=== PATIENT | female | born 1995 | race Caucasian/White ===

== ENCOUNTER → 2016-05-19 | Outpatient (CLI) | payer BC ==
--- NOTE | 2016-05-19 15:23 | REP ---
Clinical: Anatomical evaluation. Comparison: 04/14/2016 . Findings: Examination demonstrates a single live intrauterine in cephalic presentation. motion is identified by technologist. Placenta is noted anteriorly and grade zero without evidence for placenta previa or abruption. Amniotic fluid volume is normal. Cervix measures 4.7 cm. in length and appears closed. No evidence for nuchal cord. Gestational age by LMP 24 weeks 4 days with KAROL 09/04/2016 . Gestational age by current measurements 24 weeks 0 days with KAROL 09/08/2016 . FHR equals 147 beats per minute. Estimated weight 678 grams ( 34th percentile). Anatomical assessment demonstrates normal structures including cranium, choroid plexus, cavum, cerebellum/posterior fossa, nose/lips, lungs, four-chamber heart/ventricular outflow tracts, diaphragm, stomach, cord insertion/three-vessel cord, kidneys/bladder, spine, and extremities. Impression: Single live intrauterine in cephalic presentation demonstrating appropriate interval growth. With the exception of facial profile, anatomical assessment is complete and normal. Signed by Alen Nance MD 05/19/2016 03:15 P
== END | disposition home or self-care (01) ==
LOC: M SMT 13:46
PROVIDERS: ATTEND Advanced Practice Midwife
DX: Z34.82 Encounter for supervision of other normal pregnancy, second trimester (principal); Z36 Encounter for antenatal screening of mother; Z3A.24 24 weeks gestation of pregnancy

== ENCOUNTER → 2016-06-09 | Outpatient (CLI) | payer BC ==
[2016-06-09 17:59] LABS: BASO # 0.1 K/mm3 (0.0-0.2); BASO % 0.7 % (0.0-1.0); EOS # 0.2 K/mm3 (0.0-0.50); EOS % 1.5 % (0.0-3.0); LARGE UNSTAINED CELL # 0.1 K/mm3 (0.0-0.4); LARGE UNSTAINED CELL % 1.1 % (0.0-4.0); LYMPH # 1.7 K/mm3 (1.5-6.5); LYMPH % 14.9 % (24.0-44.0); MEAN CORPUSCULAR HEMOGLOBIN 30.6 pg (27.0-33.0); MEAN CORPUSCULAR HGB CONC 34.2 g/dl (32.0-36.5); MEAN CORPUSCULAR VOLUME 89.4 fl (80.0-96.0); MONO # 0.5 K/mm3 (0.0-0.8); MONO % 4.4 % (0.0-5.0); NEUTROPHILS # 8.3 K/mm3 (1.8-7.7); NEUTROPHILS % 77.5 % (36.0-66.0); PLATELET COUNT, AUTOMATED 178 k/mm3 (150-450); RED CELL DISTRIBUTION WIDTH 13.8 % (11.5-14.5); WHITE BLOOD COUNT 10.7 K/mm3 (4.0-10.0)
== END | disposition home or self-care (01) ==
LOC: M SMT 10:03
PROVIDERS: ATTEND Advanced Practice Midwife
DX: Z34.83 Encounter for supervision of other normal pregnancy, third trimester (principal); Z36 Encounter for antenatal screening of mother; Z3A.00 Weeks of gestation of pregnancy not specified

== ENCOUNTER → 2016-08-11 | Outpatient (REF) | payer BC | LOC: M LAB REF 17:04 | PROVIDERS: ATTEND Obstetrics & Gynecology | DX: Z34.83 Encounter for supervision of other normal pregnancy, third trimester (principal); Z36 Encounter for antenatal screening of mother; Z3A.00 Weeks of gestation of pregnancy not specified ==

== ENCOUNTER 2016-09-02 08:45 | Inpatient (IN) | payer BC ==
[~2016-09-02] VITALS: Ht 167.6 cm; Wt 90.0 kg
[2016-09-02] VITALS (16 sets, daily range): BP systolic 125–181; BP diastolic 63–102
[2016-09-02] MEDS ORDERED: LACTATED RINGER'S 1000 ML IV STA (09:09)
[2016-09-02] MEDS ORDERED: PRENTAB9 PO (09:19)
[2016-09-02] MEDS ORDERED: BUTORPHANOL 2 MG/ML INJ (J0595) IV ONE (10:00)
[2016-09-02] MEDS ORDERED: PROMETHAZINE INJ 25 MG/ML VIAL (J2550) IV ONE (10:00)
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
[2016-09-02] MEDS: miSOPROStol 50 MCG 1/2 TAB (S0191) PO SCH ×4 (11:04→23:43)
[2016-09-02 11:09] LABS: MEAN CORPUSCULAR HEMOGLOBIN 31.3 pg (27.0-33.0); MEAN CORPUSCULAR HGB CONC 34.8 g/dl (32.0-36.5); RED CELL DISTRIBUTION WIDTH 13.6 % (11.5-14.5); WHITE BLOOD COUNT 10.1 K/mm3 (4.0-10.0)
[2016-09-02 11:18] LABS: ALT/SGPT 15 U/L (12-78); AST/SGOT 19 U/L (15-37); BILIRUBIN,TOTAL 0.4 MG/DL (0.2-1.0); CREATININE FOR GFR 0.47 MG/DL (0.55-1.02); GLOMERULAR FILTRATION RATE > 60.0 (>60); URIC ACID 4.4 MG/DL (2.6-6.0)
[2016-09-02] MEDS ORDERED: hydrOXYzine 50 MG TAB PO SCH (21:00)
[2016-09-03] VITALS (35 sets, daily range): BP systolic 126–173; BP diastolic 60–102
[2016-09-03] MEDS ORDERED: LR 1,000 ML IV SCH (05:37)
[2016-09-03] MEDS ORDERED: OXYTOCIN DRIP 30 UNITS in APPROPRIATE DILUENT 1 EA IV SCH (05:45)
[2016-09-03] MEDS ORDERED: FENTANYL 2MCG/ML ROPIVACAINE 0.2% IN 0.9% NACL 200ML IVBAG As Ordered ONE (08:20)
[2016-09-03 08:43] LABS: MEAN CORPUSCULAR HEMOGLOBIN 30.6 pg (27.0-33.0); RED CELL DISTRIBUTION WIDTH 13.4 % (11.5-14.5); WHITE BLOOD COUNT 10.9 K/mm3 (4.0-10.0)
[2016-09-03] MEDS ORDERED: INFLUENZA QUADRIVALENT PF VACCINE 0.5ML SYRINGE/VIAL (90686) IM ONE (09:00)
[2016-09-03] MEDS ORDERED: REFRIGERATOR IV KEYS XX PRN (10:15)
[2016-09-03] MEDS ORDERED: EPIDURAL COMMENT XX SCH (10:15)
[2016-09-03] MEDS ORDERED: FENTANYL/ROPIVACAINE/NACL BAG 200 ML EPIDURAL SCH (10:15)
[2016-09-03] MEDS ORDERED: NALOXONE INJ 0.4 MG/1 ML VIAL (J2310) IV PRN (10:15)
[2016-09-03] MEDS ORDERED: EPIDURAL/PCA KEYS XX PRN (10:15)
[2016-09-03] MEDS ORDERED: ONDANSETRON 4MG/2ML VIAL (J2405) IV PRN (10:15)
[2016-09-03] MEDS ORDERED: diphenhydrAMINE INJ 50MG/ML VIAL (J1200) IV PRN (10:15)
[2016-09-03] MEDS ORDERED: LACTATED RINGER'S 1000 ML IV PRN (10:15)
[2016-09-03] MEDS ORDERED: ePHEDrine SULFATE 25 MG/5 ML(5MG/ML) SYRINGE IV PRN (10:15)
[2016-09-03] MEDS ORDERED: OXYTOCIN 30 UNITS IN 0.9% NaCl 500ML IV BAG (J2590) As Ordered ONE (17:10)
[2016-09-03] MEDS: OXYTOCIN DRIP 30 UNITS in APPROPRIATE DILUENT 1 EA IV SCH (17:32)
[2016-09-03] MEDS ORDERED: RHOGAM 300 MCG (1500 IU) INJ (J2790) IM SCH (17:45)
[2016-09-03] MEDS ORDERED: miSOPROStol 200 MCG TAB (S0191) PR ONE (17:45)
[2016-09-03] MEDS ORDERED: MEASLES,MUMPS,RUBELLA VACCINE INJ (MMR-II) (90707) SC SCH (17:45)
[2016-09-03] MEDS ORDERED: METHYLERGONOVINE MALEATE 0.2 MG TAB PO PRN (17:45)
[2016-09-03] MEDS ORDERED: MOM 30ML SUSPENSION UDC PO PRN (17:45)
[2016-09-03] MEDS ORDERED: DIBUCAINE 1% OINTMENT 30GM TOP PRN (17:45)
[2016-09-03] MEDS ORDERED: ANUSOL HC CREAM 30GM TOP PRN (17:45)
[2016-09-03] MEDS ORDERED: ACETAMINOPHEN 500 MG TAB PO PRN (17:45)
[2016-09-03] MEDS: IBUPROFEN 800 MG TAB PO PRN (19:18)
[2016-09-03 22:09] LABS: MEAN CORPUSCULAR HEMOGLOBIN 31.7 pg (27.0-33.0); MEAN CORPUSCULAR HGB CONC 35.1 g/dl (32.0-36.5); MEAN CORPUSCULAR VOLUME 90.2 fl (80.0-96.0); RED CELL DISTRIBUTION WIDTH 13.2 % (11.5-14.5); WHITE BLOOD COUNT 18.8 K/mm3 (4.0-10.0)
[2016-09-04 00:11] VITALS: BP 152/94
[2016-09-04 00:14] VITALS: BP 148/85
[2016-09-04 00:40] VITALS: BP 140/94
[2016-09-04 06:26] VITALS: BP 137/77
[2016-09-04] MEDS: OXYTOCIN DRIP 30 UNITS in APPROPRIATE DILUENT 1 EA IV SCH (09:11)
[2016-09-04] MEDS: PRENATAL VITAMIN TAB PO SCH ×2 (09:12→09:19)
[2016-09-04] MEDS ORDERED: INFLUENZA QUADRIVALENT PF VACCINE 0.5ML SYRINGE/VIAL (90686) IM ONE (10:00)
[2016-09-04 18:00] VITALS: BP 139/77
[2016-09-04] MEDS: IBUPROFEN 800 MG TAB PO PRN (18:25)
[2016-09-04] MEDS: DOCUSATE SODIUM 100 MG CAP PO PRN ×2 (19:59→20:00)
[2016-09-04 22:00] VITALS: BP 137/86
[2016-09-05 05:52] VITALS: BP 127/61
[2016-09-05] MEDS: PRENATAL VITAMIN TAB PO SCH (09:11)
[2016-09-05] MEDS: IBUPROFEN 800 MG TAB PO PRN (09:11)
[2016-09-05] MEDS ORDERED: IBUP-1114 PO (10:07)
[2016-09-05] MEDS ORDERED: ACET50TA PO (10:07)
--- NOTE | 2016-09-13 14:53 | DN ---
DATE: 09/03/2016 TIME OF : 1648 hours GENDER: Male. SCORES: 7 and 8. WEIGHT: 9 pounds 0 ounces or 4084 grams. ANESTHESIA: Epidural. LACERATIONS: Second degree midline episiotomy without extension. COUNTS: Five laparotomy sponges accounted for prior to and after delivery, one sharp removed from delivery field. DELIVERY NOTE: On 09/03/2016 at 1648 hours, Mrs. Levy, a 21-year-old, 1, now para 1, had a spontaneous vaginal delivery of a liveborn male , scores 7 and 8, weight 9 pounds or 4084 grams. Head was delivered occiput anterior (OA) over a second degree midline episiotomy, followed by delivery of shoulders and corpus. Infant was then handed to mom with a good cry. Cord was clamped times two, was cut by the father of the baby under my direction. Cord blood was then obtained. Placenta was drained and delivered grossly intact. A premixed bag of 500 mL of normal saline with 30 units of Pitocin was bolused along with uterine massage until the uterus was firm. On inspection, there was a second degree midline episiotomy with no further extension, which was repaired with #3-0 Vicryl Rapide. On reinspection, cervix, vagina and perineum was grossly intact, hemostatic. Mother and baby recovering in stable condition. [facility] SYSTEM[facility]spinoza
== END 2016-09-05 11:25 | disposition home or self-care (01) | DRG 560 ==
LOC: M LDI 08:45 → M OBS 09-04 00:27
PROVIDERS: ADMIT Advanced Practice Midwife; ATTEND Obstetrics & Gynecology
PROC: 3E0P7GC Introduction of Other Therapeutic Substance into Female Reproductive, Via Natural or Artificial Opening (ICD-10-PCS; 2016-09-02)
PROC: 10E0XZZ Delivery of Products of Conception, External Approach (ICD-10-PCS; principal; 2016-09-03)
PROC: 0KQM0ZZ Repair Perineum Muscle, Open Approach (ICD-10-PCS; 2016-09-03)
PROC: 10907ZC Drainage of Amniotic Fluid, Therapeutic from Products of Conception, Via Natural or Artificial Opening (ICD-10-PCS; 2016-09-03)
DX: O14.14 Severe pre-eclampsia complicating childbirth (principal); Z3A.39 39 weeks gestation of pregnancy; Z88.0 Allergy status to penicillin; O70.1 Second degree perineal laceration during delivery; O72.2 Delayed and secondary postpartum hemorrhage; Z37.0 Single live birth

== ENCOUNTER → 2016-10-18 | Outpatient (CLI) | payer BC ==
[~2016-10-18] MED LIST: ACET50TA PO; IBUP-1114 PO; PRENTAB9 PO
[2016-10-18 18:47] LABS: ALBUMIN 3.9 GM/DL (3.2-5.2); ALBUMIN/GLOBULIN RATIO 1.18 (1.00-1.93); ALKALINE PHOSPHATASE 89 U/L (45-117); ALT/SGPT 62 U/L (12-78); ANION GAP 8 MEQ/L (8-16); AST/SGOT 40 U/L (15-37); BILIRUBIN,TOTAL 0.3 MG/DL (0.2-1.0); BLOOD UREA NITROGEN 15 MG/DL (7-18); CALCIUM LEVEL 9.5 MG/DL (8.5-10.1); CARBON DIOXIDE LEVEL 27 MEQ/L (21-32); CHLORIDE LEVEL 107 MEQ/L (98-107); CREATININE FOR GFR 0.63 MG/DL (0.55-1.02); GLOMERULAR FILTRATION RATE > 60.0 (>60); GLUCOSE, FASTING 98 MG/DL (70-105); POTASSIUM SERUM 4.4 MEQ/L (3.5-5.1); SODIUM LEVEL 142 MEQ/L (136-145); TOTAL PROTEIN 7.2 GM/DL (6.4-8.2)
[2016-10-18 19:06] LABS: BASO % 0.6 % (0.0-1.0); EOS # 0.2 K/mm3 (0.0-0.50); EOS % 3.4 % (0.0-3.0); LARGE UNSTAINED CELL # 0.2 K/mm3 (0.0-0.4); LARGE UNSTAINED CELL % 2.8 % (0.0-4.0); LYMPH # 1.8 K/mm3 (1.5-6.5); MEAN CORPUSCULAR HEMOGLOBIN 29.9 pg (27.0-33.0); MEAN CORPUSCULAR HGB CONC 33.3 g/dl (32.0-36.5); MEAN CORPUSCULAR VOLUME 89.7 fl (80.0-96.0); MONO # 0.4 K/mm3 (0.0-0.8); MONO % 5.8 % (0.0-5.0); NEUTROPHILS # 4.6 K/mm3 (1.8-7.7); NEUTROPHILS % 62.4 % (36.0-66.0); PLATELET COUNT, AUTOMATED 248 k/mm3 (150-450); RED CELL DISTRIBUTION WIDTH 12.8 % (11.5-14.5); WHITE BLOOD COUNT 7.3 K/mm3 (4.0-10.0)
== END ==
LOC: M WUC 10:29
PROVIDERS: ATTEND Physician Assistant
DX: R10.811 Right upper quadrant abdominal tenderness (principal)

== ENCOUNTER → 2016-10-21 | Outpatient (CLI) | payer BC ==
--- NOTE | 2016-10-22 01:15 | REP ---
Clinical: Right upper quadrant abdominal pain. Technique: Davila scale ultrasound using curved array transducer. Findings: The liver and pancreas are normal in contour, size, and echogenicity without focal hepatic or pancreatic lesions identified. The gallbladder is normal without gallstones, wall thickening or pericholecystic fluid. No biliary ductal dilatation is appreciated, and the common bile duct measures 4.6 mm diameter. The right kidney is normal in reniform shape without hydronephrosis and measures 9.9 x 5.7 x 4.4 cm. No ascites. Visualized portions of the abdominal aorta normal. Impression: Normal right upper quadrant and gallbladder abdominal ultrasound. Signed by Alen Nance MD 10/22/2016 01:07 A
== END ==
LOC: M RAD 08:12
PROVIDERS: ATTEND Physician Assistant
DX: R10.811 Right upper quadrant abdominal tenderness (principal)

== ENCOUNTER → 2017-01-11 | Outpatient (REF) | payer BC, MEDICAID | LOC: M LAB REF 09:30 | PROVIDERS: ATTEND Physician Assistant | DX: J02.9 Acute pharyngitis, unspecified (principal) ==

== ENCOUNTER → 2017-03-20 | Outpatient (CLI) | payer BC, MEDICAID ==
[2017-03-20 12:48] LABS: PROGESTERONE < 0.2 NG/ML
[2017-03-20 12:54] LABS: FREE T4 0.94 NG/DL (0.76-1.46)
== END ==
LOC: M WUC 09:11
PROVIDERS: ATTEND Advanced Practice Midwife
DX: E28.2 Polycystic ovarian syndrome (principal)

== ENCOUNTER 2017-10-25 20:58 | Emergency (ER) | payer BC, MEDICAID ==
[2017-10-25 21:33] LABS: KETONE, URINE AUTO RFX NEGATIVE (NEGATIVE); MUCUS, URINE RFX SMALL (NEGATIVE); NITRITE, URINE AUTO RFX NEGATIVE (NEGATIVE); RBC, URINE AUTO RFX 2 /HPF (0-3); SPECIFIC GRAVITY UR AUTO RFX 1.021 (1.002-1.035); SQUAM EPITHELIAL CELL UR AURFX 4 /HPF (0-6); WBC, URINE AUTO RFX 5 /HPF (0-3)
[2017-10-25 21:44] LABS: LEUKOCYTE ESTERASE UR AUTO RFX TRACE (NEGATIVE)
[2017-10-25 23:07] LABS: BASO % 0.4 % (0.0-1.0); EOS # 0.2 10^3/uL (0.0-0.50); EOS % 1.9 % (0.0-3.0); HEMATOCRIT 42.8 % (36.0-47.0); HEMOGLOBIN 14.5 g/dl (12.0-15.5); IMMATURE GRANULOCYTE % 0.2 % (0-3.0); LYMPH # 2.6 10^3/uL (1.5-6.5); LYMPH % 26.3 % (24.0-44.0); MEAN CORPUSCULAR HEMOGLOBIN 29.4 pg (27.0-33.0); MEAN CORPUSCULAR HGB CONC 33.9 g/dl (32.0-36.5); MEAN CORPUSCULAR VOLUME 86.8 fl (80.0-96.0); MONO # 0.8 10^3/uL (0.0-0.8); MONO % 8.4 % (0.0-5.0); NEUTROPHILS # 6.3 10^3/uL (1.8-7.7); NEUTROPHILS % 62.8 % (36.0-66.0); PLATELET COUNT, AUTOMATED 207 10^3/uL (150-450); RED BLOOD COUNT 4.93 10^6/uL (4.00-5.40); RED CELL DISTRIBUTION WIDTH 12.2 % (11.5-14.5)
[2017-10-25 23:32] LABS: CONTROL LINE HCG INT CTR LINE PRESENT; HCG, SERUM QUALITATIVE NEGATIVE (NEGATIVE)
[2017-10-25 23:36] LABS: ALBUMIN 3.7 GM/DL (3.2-5.2); ALKALINE PHOSPHATASE 60 U/L (45-117); ALT/SGPT 74 U/L (12-78); ANION GAP 6 MEQ/L (8-16); AST/SGOT 37 U/L (7-37); BILIRUBIN,DIRECT < 0.1 MG/DL (0.0-0.2); BILIRUBIN,TOTAL 0.2 MG/DL (0.2-1.0); BLOOD UREA NITROGEN 15 MG/DL (7-18); CALCIUM LEVEL 8.9 MG/DL (8.5-10.1); CARBON DIOXIDE LEVEL 25 MEQ/L (21-32); CHLORIDE LEVEL 109 MEQ/L (98-107); CREATININE FOR GFR 0.64 MG/DL (0.55-1.30); GLOMERULAR FILTRATION RATE > 60.0 (>60); GLUCOSE, FASTING 99 MG/DL (70-100); LIPASE 187 U/L (73-393); POTASSIUM SERUM 4.2 MEQ/L (3.5-5.1); SODIUM LEVEL 140 MEQ/L (136-145); TOTAL PROTEIN 7.4 GM/DL (6.4-8.2)
[2017-10-25] MEDS ORDERED: ISOVUE-370 76% 100ML VIAL (Q9967) As Ordered (23:43)
[2017-10-26] MEDS: ONDANSETRON 4MG/2ML VIAL (J2405) IV (02:16)
[2017-10-26] MEDS: NS 1,000 ML IV (02:16)
[2017-10-26] MEDS: fentaNYL 100 MCG/2 ML INJECTION (J3010) IV (02:17)
== END 2017-10-26 05:09 | disposition home or self-care (01) ==
LOC: M ED 10-26 05:09
DX: R10.9 Unspecified abdominal pain (principal); I10 Essential (primary) hypertension; J45.909 Unspecified asthma, uncomplicated; Z87.42 Personal history of other diseases of the female genital tract; Z88.0 Allergy status to penicillin; Z79.899 Other long term (current) drug therapy
CPT/HCPCS: J2405

== ENCOUNTER 2018-01-30 18:07 | Emergency (ER) | payer BC ==
[2018-01-30] MEDS: NORCO 5/325MG TABLET (BULK FOR ED) PO (19:29)
== END 2018-01-30 19:52 | disposition home or self-care (01) ==
LOC: M ED 18:07
DX: S93.402A Sprain of unspecified ligament of left ankle, initial encounter (principal); X50.9XXA Other and unspecified overexertion or strenuous movements or postures, initial encounter; Y92.410 Unspecified street and highway as the place of occurrence of the external cause; J45.909 Unspecified asthma, uncomplicated; K58.9 Irritable bowel syndrome, unspecified; Z88.0 Allergy status to penicillin; Z79.3 Long term (current) use of hormonal contraceptives; Z79.899 Other long term (current) drug therapy
CPT/HCPCS: 73610

== ENCOUNTER → 2018-02-19 | Outpatient (CLI) | payer BC | LOC: M WUC 15:22 | DX: J20.9 Acute bronchitis, unspecified (principal) ==

== ENCOUNTER 2018-06-08 11:24 | Emergency (ER) | payer BC, MEDICAID, SELFPAY ==
[~2018-06-08] VITALS: Ht 170.2 cm; Wt 98.3 kg
[~2018-06-08 11:24] MED LIST changes: -ACET50TA PO; +MAPA500T2 PO; +NORCOTAB PO; +OMEP40CA2 PO; +PRED20TA; +TRI-LO-MARZIA
[2018-06-08 12:10] LABS: BASO # 0.1 10^3/uL (0.0-0.2); BASO % 0.4 % (0.0-1.0); EOS # 0.1 10^3/uL (0.0-0.50); EOS % 1.2 % (0.0-3.0); HEMATOCRIT 46.5 % (36.0-47.0); LYMPH # 2.1 10^3/uL (1.5-6.5); LYMPH % 18.6 % (24.0-44.0); MEAN CORPUSCULAR HEMOGLOBIN 30.3 pg (27.0-33.0); MEAN CORPUSCULAR HGB CONC 34.4 g/dl (32.0-36.5); MEAN CORPUSCULAR VOLUME 88.1 fl (80.0-96.0); MONO # 0.5 10^3/uL (0.0-0.8); MONO % 4.6 % (0.0-5.0); NEUTROPHILS # 8.4 10^3/uL (1.8-7.7); NEUTROPHILS % 74.9 % (36.0-66.0); PLATELET COUNT, AUTOMATED 224 10^3/uL (150-450); RED BLOOD COUNT 5.28 10^6/uL (4.00-5.40); WHITE BLOOD COUNT 11.2 10^3/uL (4.0-10.0)
[2018-06-08 12:41] LABS: ALBUMIN 4.2 GM/DL (3.2-5.2); ALT/SGPT 148 U/L (12-78); BILIRUBIN,DIRECT 0.1 MG/DL (0.0-0.2); BILIRUBIN,TOTAL 0.5 MG/DL (0.2-1.0); BLOOD UREA NITROGEN 14 MG/DL (7-18); CALCIUM LEVEL 9.4 MG/DL (8.5-10.1); CARBON DIOXIDE LEVEL 25 MEQ/L (21-32); CHLORIDE LEVEL 106 MEQ/L (98-107); CREATININE FOR GFR 0.62 MG/DL (0.55-1.30); GLOMERULAR FILTRATION RATE > 60.0 (>60); GLUCOSE, FASTING 106 MG/DL (70-100); LIPASE 164 U/L (73-393); POTASSIUM SERUM 4.2 MEQ/L (3.5-5.1); SODIUM LEVEL 139 MEQ/L (136-145); TOTAL PROTEIN 7.2 GM/DL (6.4-8.2)
[2018-06-08] MEDS ORDERED: ONDANSETRON 4MG/2ML VIAL (J2405) IV ONE (12:45)
[2018-06-08 13:10] LABS: URINE PREG TEST NEGATIVE (NEGATIVE)
--- NOTE | 2018-06-08 13:15 | REP ---
Clinical: Acute right upper quadrant pain and leukocytosis Technique: Davila scale ultrasound using curved array transducer. Findings: The liver demonstrates fatty infiltration without focal hepatic lesion. The pancreas is normal in appearance. The gallbladder is normal without gallstones, wall thickening or pericholecystic fluid. No biliary ductal dilatation is appreciated, and the common bile duct measures 4.5 mm diameter. The right kidney is normal in reniform shape without hydronephrosis and measures 11.7 x 6.4 x 5.4 cm. No ascites. Visualized portions of the abdominal aorta normal. Impression: Fatty infiltration to the liver. Otherwise normal right upper quadrant ultrasound. Electronically Signed by Alen Nance MD 06/08/2018 01:07 P
[2018-06-08] MEDS ORDERED: KETOROLAC 30 MG/ML VIAL (J1885) IV ONE (13:45)
--- NOTE | 2018-06-08 14:34 | REP ---
Clinical: Right flank pain. Technique: Axial noncontrast images from the lung bases to the pubic symphysis with coronal and sagittal re-formations. Comparison: 10/25/2017. Findings: Lung bases are clear. Hepatomegaly and fatty infiltration to the liver noted. Spleen, pancreas, gallbladder, bilateral adrenal glands and kidneys are normal. Specifically, no perinephric stranding, hydroureteronephrosis, intrarenal or obstructing ureteral calculi are identified. The enteric system is without obstruction or acute inflammatory process. Normal terminal ileum and appendix are identified in the right lower quadrant. Few scattered right lower quadrant lymph nodes are identified and may reflect a mild mesenteric adenitis. Pelvis demonstrates normal bladder and age-appropriate uterus/adnexa. No pelvic fluid or ascites. No free air. No adenopathy. Abdominal aorta normal. 1 cm fat containing periumbilical hernia identified. Ischial skeletal structures demonstrate chronic L5 spondylolysis without spondylolisthesis. Impression: 1. Hepatomegaly and hepatosteatosis without focal hepatic lesion. 2. Cannot exclude mesenteric adenitis. 3. Otherwise normal noncontrast CT of the abdomen and pelvis. Electronically Signed by Alen Nance MD 06/08/2018 02:25 P
[2018-06-08] MEDS ORDERED: ONDA4TAB6 PO (14:40)
[2018-06-08] MEDS ORDERED: NAPR-50 PO (14:40)
[2018-06-08 14:45] VITALS: BP 141/92
--- NOTE | 2018-06-09 13:09 | ED PDOC ---
Post-Departure Follow-Up dr richmond faxed formal report of ct abd/p for fu Javier Nayak MD Jun 09, 2018 13:08
== END 2018-06-08 14:46 | disposition home or self-care (01) ==
LOC: M ED 11:24
DX: R10.9 Unspecified abdominal pain (principal); K76.0 Fatty (change of) liver, not elsewhere classified
CPT/HCPCS: 74176; 76705; 80048; 80076; 81001; 83690; 84703; 85025; 87086; 96374; 96375; 99284; J1885; J2405

== ENCOUNTER 2018-08-12 09:25 | Emergency (ER) | payer BC, MEDICAID, OTHER ==
[~2018-08-12] VITALS: Ht 170.2 cm; Wt 97.7 kg
[~2018-08-12 09:25] MED LIST changes: +HYDR-3715 PO; +NAPR-837 PO; -NORCOTAB PO; +ONDA4TAB6 PO
[2018-08-12 10:04] LABS: BASO # 0.1 10^3/uL (0.0-0.2); BASO % 0.5 % (0.0-1.0); EOS # 0.1 10^3/uL (0.0-0.50); EOS % 1.4 % (0.0-3.0); HEMATOCRIT 46.7 % (36.0-47.0); HEMOGLOBIN 15.7 g/dl (12.0-15.5); LYMPH # 1.8 10^3/uL (1.5-6.5); LYMPH % 19.4 % (24.0-44.0); MEAN CORPUSCULAR HEMOGLOBIN 29.9 pg (27.0-33.0); MEAN CORPUSCULAR HGB CONC 33.6 g/dl (32.0-36.5); MONO # 0.6 10^3/uL (0.0-0.8); MONO % 6.9 % (0.0-5.0); NEUTROPHILS # 6.5 10^3/uL (1.8-7.7); NEUTROPHILS % 71.4 % (36.0-66.0); PLATELET COUNT, AUTOMATED 257 10^3/uL (150-450); RED BLOOD COUNT 5.25 10^6/uL (4.00-5.40); WHITE BLOOD COUNT 9.1 10^3/uL (4.0-10.0)
--- NOTE | 2018-08-12 11:05 | REP ---
Emergency first trimester obstetric sonography: History: Vaginal bleeding. Beta HCG level is eight. Findings: Transabdominal and transvaginal scanning are included. Uterine dimensions are 7.7 x 4.3 x 4.7 cm. The uterus is empty. Endometrium measures 0.9 cm in thickness. No intrauterine gestation seen. No free fluid is seen in the cul-de-sac. No adnexal mass or cyst is observed. Normal ovaries are seen. The right ovary measures 3.2 x 1.8 x 2.7 cm. Left ovarian dimensions are 3.9 x 2.0 x 2.1 cm. No Doppler flow is normal both ovaries. Resistive indices are measured at 0.49 on the right and 0.51 on the left. Impression: Normal size empty uterus. No adnexal mass or free fluid. In the face of positive test, these are nonspecific findings. Early IUP versus missed AB. Ectopic cannot be completely excluded either. Clinical and possibly sonographic followup is advised. Electronically Signed by Tyler Estrada MD 08/12/2018 10:57 A
[2018-08-12 11:20] VITALS: BP 139/77
== END 2018-08-12 11:22 | disposition home or self-care (01) ==
LOC: M ED 09:25
DX: O20.0 Threatened abortion (principal); O16.9 Unspecified maternal hypertension, unspecified trimester; J45.909 Unspecified asthma, uncomplicated; K58.9 Irritable bowel syndrome, unspecified; Z88.0 Allergy status to penicillin; Z3A.00 Weeks of gestation of pregnancy not specified; O99.53 Diseases of the respiratory system complicating the puerperium; O99.619 Diseases of the digestive system complicating pregnancy, unspecified trimester

== ENCOUNTER → 2018-08-14 | Outpatient (CLI) | payer OTHER | LOC: M WUC 12:10 | PROVIDERS: ATTEND Obstetrics & Gynecology | DX: N93.9 Abnormal uterine and vaginal bleeding, unspecified (principal) ==

== ENCOUNTER → 2018-10-25 | Outpatient (CLI) | payer OTHER ==
[2018-10-25 13:10] LABS: ALT/SGPT 59 U/L (12-78); BILIRUBIN,TOTAL 0.4 MG/DL (0.2-1.0); CREATININE FOR GFR 0.58 MG/DL (0.55-1.30); GLOMERULAR FILTRATION RATE > 60.0 (>60); LDH LACTATE DEHYDROGENASE 185 U/L (84-246); URIC ACID 5.1 MG/DL (2.6-6.0)
[2018-10-25 13:15] LABS: BASO # 0.1 10^3/uL (0.0-0.2); BASO % 0.5 % (0.0-1.0); EOS # 0.2 10^3/uL (0.0-0.50); EOS % 1.7 % (0.0-3.0); HEMATOCRIT 47.1 % (36.0-47.0); HEMOGLOBIN 15.7 g/dl (12.0-15.5); LYMPH # 2.2 10^3/uL (1.5-6.5); MEAN CORPUSCULAR HEMOGLOBIN 30.5 pg (27.0-33.0); MEAN CORPUSCULAR HGB CONC 33.3 g/dl (32.0-36.5); MEAN CORPUSCULAR VOLUME 91.6 fl (80.0-96.0); MONO # 0.7 10^3/uL (0.0-0.8); NEUTROPHILS # 6.5 10^3/uL (1.8-7.7); NEUTROPHILS % 67.4 % (36.0-66.0); PLATELET COUNT, AUTOMATED 205 10^3/uL (150-450); RED BLOOD COUNT 5.14 10^6/uL (4.00-5.40); WHITE BLOOD COUNT 9.7 10^3/uL (4.0-10.0)
[2018-10-25 13:31] LABS: RUBELLA IgG QUALITATIVE IMMUNE (IMMUNE)
[2018-10-25 13:59] LABS: TOTAL PROTEIN,RANDOM URINE 14.5 MG/DL (0.0-12.0)
[2018-10-25 14:00] LABS: HEPATITIS C VIRUS ABY INDEX < 0.0 INDEX (<0.8); HIV 1&2 SCREEN CENTAUR NEGATIVE (NEGATIVE)
[2018-10-25 15:00] LABS: CHLAMYDIA DNA AMPLIFICATION NEGATIVE (NEGATIVE); GC DNA AMPLIFICATION NEGATIVE (NEGATIVE)
== END ==
LOC: M SMT 08:27
PROVIDERS: ATTEND Advanced Practice Midwife
DX: Z34.80 Encounter for supervision of other normal pregnancy, unspecified trimester (principal); Z3A.01 Less than 8 weeks gestation of pregnancy

== ENCOUNTER → 2018-10-28 | Outpatient (CLI) | payer OTHER ==
[2018-10-31 00:06] LABS: ANTI PARVO VIRUS LEVEL IGG 0.1 index (0.0-0.8); ANTI PARVO VIRUS LEVEL IgM 0.1 index (0.0-0.8)
== END ==
LOC: M WUC 15:53
PROVIDERS: ATTEND Specialist
DX: Z34.81 Encounter for supervision of other normal pregnancy, first trimester (principal); Z3A.00 Weeks of gestation of pregnancy not specified

== ENCOUNTER → 2018-11-14 | Outpatient (REF) | payer OTHER | LOC: M LAB REF 09:50 | PROVIDERS: ATTEND Physician Assistant | DX: R35.0 Frequency of micturition (principal) ==

== ENCOUNTER → 2018-12-28 | Outpatient (CLI) | payer OTHER ==
--- NOTE | 2018-12-28 19:28 | REP ---
OB ULTRASOUND: Real-time sonographic evaluation of the gravid uterus performed. There is a single living intrauterine gestation, estimated gestational age 18 weeks 4 days, EDC 05/27/2019. Today's measurements indicate appropriate growth. BPD 44 mm = 19 weeks 2 days, 69th percentile HC 157 mm = 18 weeks 4 days, 50th percentile AC 146 mm = 19 weeks 6 days, 77th percentile FL 30 mm = 19 weeks 2 days, 68th percentile HC/AC ratio 1.08 within normal range. Estimated weight 297 grams, 82nd percentile. heart rate 151 beats per minute. Cervical length 3.6 cm. SEEN/GROSSLY UNREMARKABLE Lateral ventricles yes Posterior fossa yes Upper lip yes Four-chamber heart yes LVOT yes RVOT no Stomach yes Cord insertion yes Three vessel cord yes Kidneys yes Bladder yes Spine yes position: Vertex. Placenta: Anterior and grade 0 with no previa or abruption. Amniotic fluid: Within normal limits. Electronically Signed by Javier Davila MD 12/29/2018 02:31 P
== END ==
LOC: M RAD 13:26
PROVIDERS: ATTEND Advanced Practice Midwife
DX: Z34.82 Encounter for supervision of other normal pregnancy, second trimester (principal); Z36.89 Encounter for other specified antenatal screening; Z3A.19 19 weeks gestation of pregnancy

== ENCOUNTER → 2019-02-24 | Outpatient (CLI) | payer OTHER ==
[~2019-02-24] MED LIST changes: -OMEP40CA2 PO; +OMEP40CA97 PO
[2019-02-24 20:19] LABS: HEMATOCRIT 36.4 % (36.0-47.0); HEMOGLOBIN 12.2 g/dl (12.0-15.5); MEAN CORPUSCULAR HGB CONC 33.5 g/dl (32.0-36.5); MEAN CORPUSCULAR VOLUME 92.4 fl (80.0-96.0); PLATELET COUNT, AUTOMATED 164 10^3/uL (150-450); RED BLOOD COUNT 3.94 10^6/uL (4.00-5.40)
== END ==
LOC: M WUC 15:04
PROVIDERS: ATTEND Advanced Practice Midwife
DX: Z34.82 Encounter for supervision of other normal pregnancy, second trimester (principal); Z3A.00 Weeks of gestation of pregnancy not specified

== ENCOUNTER 2019-04-21 12:28 | Outpatient (CLI) | payer MEDICAID, OTHER ==
[2019-04-21] VITALS (9 sets, daily range): BP systolic 134–159; BP diastolic 69–95
[~2019-04-21] VITALS: Ht 170.2 cm; Wt 102.7 kg
[~2019-04-21 12:28] MED LIST changes: -FLINCHW2 PO
[2019-04-21] MEDS ORDERED: FLINCHW2 PO (13:15)
[2019-04-21 14:20] LABS: HEMATOCRIT 38.8 % (36.0-47.0); HEMOGLOBIN 12.9 g/dl (12.0-15.5); MEAN CORPUSCULAR HEMOGLOBIN 30.6 pg (27.0-33.0); MEAN CORPUSCULAR HGB CONC 33.2 g/dl (32.0-36.5); MEAN CORPUSCULAR VOLUME 92.2 fl (80.0-96.0); PLATELET COUNT, AUTOMATED 140 10^3/uL (150-450); RED BLOOD COUNT 4.21 10^6/uL (4.00-5.40); WHITE BLOOD COUNT 9.3 10^3/uL (4.0-10.0)
[2019-04-21 14:25] LABS: CREATININE,RANDOM URINE 50.4 MG/DL; TOTAL PROTEIN,RANDOM URINE 23.1 MG/DL (0.0-12.0)
[2019-04-21 14:51] LABS: ALT/SGPT 17 U/L (12-78); BILIRUBIN,TOTAL 0.4 MG/DL (0.2-1.0); CREATININE FOR GFR 0.51 MG/DL (0.55-1.30); GLOMERULAR FILTRATION RATE > 60.0 (>60); LDH LACTATE DEHYDROGENASE 152 U/L (84-246)
--- NOTE | 2019-04-21 15:57 | IPN ---
DATE OF EVALUATION: 04/21/2019 24-year-old, (G) 2, para (P) 1, female at 34-6/7 gestation by 7 week ultrasound, estimated date of confinement (EDC) of 05/27/2018, presents from the office with elevated blood pressure. She denies headaches or blurred vision. She denies excess swelling in her lower extremities. She had good movement. She was diagnosed with preeclampsia in a previous at full term. OBJECTIVE: Blood pressure 149/69, repeat 159/74. Pulse 95. No apparent distress. Head and neck exam normal. Lungs clear. Heart regular rate and rhythm. Abdomen nontender, gravid. heart tones are category 1. Extremities trace edema. Labs reveal normal preeclampsia profile, equivocal urine P to C ratio, platelets of 140 K. ASSESSMENT: 24-year-old, G 2, P 1, 34-6/7 gestation with gestational hypertension. PLAN: To discharge home. She will be seen in the office within 4 days. She will maintain rest as possible. She will report worsening symptoms, which were discussed in detail.
== END 2019-04-21 15:19 | disposition home or self-care (01) ==
LOC: M LDO 12:28
PROVIDERS: ATTEND Specialist
DX: O13.3 Gestational [pregnancy-induced] hypertension without significant proteinuria, third trimester (principal); Z3A.34 34 weeks gestation of pregnancy; Z88.0 Allergy status to penicillin; Z88.2 Allergy status to sulfonamides

== ENCOUNTER → 2019-04-21 | Outpatient (REF) | payer OTHER ==
[~2019-04-21] MED LIST changes: +FLINCHW2 PO
== END ==
LOC: M SFHCWAGY 13:58
PROVIDERS: ATTEND Advanced Practice Midwife
DX: O16.3 Unspecified maternal hypertension, third trimester (principal)

== ENCOUNTER 2019-05-06 08:25 | Inpatient (IN) | payer MEDICAID, OTHER ==
[2019-05-06] VITALS (28 sets, daily range): BP systolic 99–169; BP diastolic 57–99
[~2019-05-06] VITALS: Ht 167.6 cm; Wt 103.0 kg
[~2019-05-06 08:25] MED LIST changes: +FLINCHW2 PO
[2019-05-06] MEDS ORDERED: LACTATED RINGER'S 1000 ML IV STA (08:56)
[2019-05-06] MEDS: LR 1,000 ML IV SCH ×2 (09:59→18:52)
[2019-05-06 10:23] LABS: HEMATOCRIT 38.7 % (36.0-47.0); HEMOGLOBIN 12.9 g/dl (12.0-15.5); MEAN CORPUSCULAR HEMOGLOBIN 30.4 pg (27.0-33.0); MEAN CORPUSCULAR HGB CONC 33.3 g/dl (32.0-36.5); MEAN CORPUSCULAR VOLUME 91.3 fl (80.0-96.0); PLATELET COUNT, AUTOMATED 129 10^3/uL (150-450); RED BLOOD COUNT 4.24 10^6/uL (4.00-5.40); WHITE BLOOD COUNT 9.7 10^3/uL (4.0-10.0)
[2019-05-06 10:43] LABS: ALT/SGPT 16 U/L (12-78); BILIRUBIN,TOTAL 0.4 MG/DL (0.2-1.0); CREATININE FOR GFR 0.52 MG/DL (0.55-1.30); GLOMERULAR FILTRATION RATE > 60.0 (>60); LDH LACTATE DEHYDROGENASE 185 U/L (84-246); URIC ACID 5.3 MG/DL (2.6-6.0)
[2019-05-06] MEDS ORDERED: miSOPROStol 50 MCG 1/2 TAB (S0191) SL SCH (11:00)
[2019-05-06] MEDS ORDERED: OXYTOCIN DRIP 30 UNITS in IV 1 EA IV SCH (16:00)
[2019-05-06] MEDS ORDERED: FENTANYL 2MCG/ML ROPIVACAINE 0.2% IN 0.9% NACL 100ML IVBAG As Ordered ONE (20:47)
[2019-05-06] MEDS ORDERED: NALOXONE INJ 0.4 MG/1 ML VIAL (J2310) IV PRN (21:29)
[2019-05-06] MEDS ORDERED: EPIDURAL COMMENT XX SCH (21:29)
[2019-05-06] MEDS ORDERED: FENTANYL/ROPIVACAINE/NACL BAG 100 ML EPIDURAL SCH (21:29)
[2019-05-06] MEDS ORDERED: REFRIGERATOR IV KEYS XX PRN (21:29)
[2019-05-06] MEDS ORDERED: ONDANSETRON 4MG/2ML VIAL (J2405) IV PRN (21:29)
[2019-05-06] MEDS ORDERED: LACTATED RINGER'S 1000 ML IV PRN (21:29)
[2019-05-06] MEDS ORDERED: EPIDURAL/PCA KEYS XX PRN (21:29)
[2019-05-06] MEDS ORDERED: diphenhydrAMINE INJ 50MG/ML VIAL (J1200) IV PRN (21:29)
[2019-05-06] MEDS ORDERED: ePHEDrine SULFATE 25 MG/5 ML(5MG/ML) SYRINGE IV PRN (21:29)
[2019-05-07] VITALS (16 sets, daily range): BP systolic 115–188; BP diastolic 55–104
[2019-05-07] MEDS ORDERED: OXYTOCIN DRIP 30 UNITS in IV 1 EA IV ONE (05:30)
[2019-05-07] MEDS ORDERED: DOCUSATE SODIUM 100 MG CAP PO PRN (05:30)
[2019-05-07] MEDS ORDERED: ACETAMINOPHEN 500 MG TAB PO PRN (05:30)
[2019-05-07] MEDS ORDERED: MEASLES,MUMPS,RUBELLA VACCINE INJ (MMR-II) (90707) SC SCH (05:30)
[2019-05-07] MEDS ORDERED: ACETAMINOPHEN TAB 650MG DOSE (2X325MG) PO PRN (05:30)
[2019-05-07] MEDS ORDERED: METHYLERGONOVINE MALEATE 0.2 MG TAB PO PRN (05:30)
[2019-05-07] MEDS ORDERED: RHOGAM 300 MCG (1500 IU) INJ (J2790) IM SCH (05:30)
[2019-05-07] MEDS ORDERED: IBUPROFEN 600 MG TAB PO PRN (05:30)
[2019-05-07] MEDS ORDERED: DIBUCAINE 1% OINTMENT 30GM TOP PRN (05:30)
[2019-05-07] MEDS ORDERED: ONDANSETRON 4MG/2ML VIAL (J2405) IV PRN (05:30)
--- NOTE | 2019-05-07 07:45 | DN ---
DATE: 05/07/2019 PREDELIVERY DIAGNOSIS: 37 weeks, preeclampsia, induction. POSTDELIVERY DIAGNOSIS: Delivered. PROCEDURE: Spontaneous vaginal delivery. ADDICTION NURSE: Dr. Javad Anthony. ANESTHESIA: Epidural. ESTIMATED BLOOD LOSS: 500 mL. FINDINGS: 7 pound 9 ounce female with scores 8 and 9. DELIVERY SUMMARY: After a ten minute second stage, the patient had spontaneous delivery of a 7 pound 9 ounce female with scores 8 and 9 under epidural anesthesia. There was no nuchal cord. The shoulders delivered with ease. The cried and was handed to the mother. The cord was double clamped and cut. The placenta delivered spontaneously and appeared to be intact. The patient received intravenous (IV) Pitocin immediately after delivery of the placenta. A first degree perineal laceration did not require repair. Sponge counts were correct.
[2019-05-07] MEDS: PRENATAL VITAMINS CHEWABLE TABLET PO SCH (08:08)
[2019-05-07] MEDS: IBUPROFEN 800 MG TAB PO PRN (20:32)
[2019-05-08 02:12] VITALS: BP 121/61
[2019-05-08] MEDS: IBUPROFEN 800 MG TAB PO PRN (04:53)
[2019-05-08 06:10] VITALS: BP 132/83
[2019-05-08] MEDS: PRENATAL VITAMINS CHEWABLE TABLET PO SCH (09:12)
[2019-05-08 10:25] VITALS: BP 135/79
== END 2019-05-08 13:05 | disposition home or self-care (01) | DRG 560 ==
LOC: M LDI 08:25 → M OBS 05-07 08:01
PROVIDERS: ADMIT Obstetrics & Gynecology; ATTEND Obstetrics & Gynecology
PROC: 3E0DXGC Introduction of Other Therapeutic Substance into Mouth and Pharynx, External Approach (ICD-10-PCS; 2019-05-06)
PROC: 10E0XZZ Delivery of Products of Conception, External Approach (ICD-10-PCS; principal; 2019-05-07)
DX: O14.94 Unspecified pre-eclampsia, complicating childbirth (principal); O70.0 First degree perineal laceration during delivery; Z37.0 Single live birth; Z3A.37 37 weeks gestation of pregnancy

== ENCOUNTER → 2020-12-17 | Outpatient (REF) | payer OTHER, MEDICAID ==
[~2020-12-17] MED LIST changes: +OMEP40CA4 PO; -OMEP40CA97 PO
== END ==
LOC: M SFHCWAGY 14:56
PROVIDERS: ATTEND Advanced Practice Midwife
DX: Z12.4 Encounter for screening for malignant neoplasm of cervix (principal); R87.625 Unsatisfactory cytologic smear of vagina

== ENCOUNTER 2021-03-23 00:38 | Emergency (ER) | payer OTHER, MEDICAID ==
[~2021-03-23] VITALS: Ht 170.2 cm; Wt 108.6 kg
[2021-03-23 01:18] LABS: BASO % 0.5 % (0.0-1.0); EOS # 0.2 10^3/uL (0.0-0.5); EOS % 2.8 % (0.0-3.0); HEMATOCRIT 44.6 % (36.0-47.0); HEMOGLOBIN 15.2 g/dl (12.0-15.5); LYMPH # 2.7 10^3/uL (1.5-5.0); LYMPH % 32.4 % (24.0-44.0); MEAN CORPUSCULAR HEMOGLOBIN 30.4 pg (27.0-33.0); MEAN CORPUSCULAR HGB CONC 34.1 g/dl (32.0-36.5); MEAN CORPUSCULAR VOLUME 89.2 fl (80.0-96.0); MONO # 0.7 10^3/uL (0.0-0.8); MONO % 8.1 % (2.0-8.0); NEUTROPHILS # 4.6 10^3/uL (1.5-8.5); NEUTROPHILS % 56.1 % (36.0-66.0); PLATELET COUNT, AUTOMATED 215 10^3/uL (150-450); WHITE BLOOD COUNT 8.2 10^3/uL (4.0-10.0)
[2021-03-23 01:59] LABS: BLOOD UREA NITROGEN 13 MG/DL (7-18); CALCIUM LEVEL 8.7 MG/DL (8.5-10.1); CARBON DIOXIDE LEVEL 26 MEQ/L (21-32); CHLORIDE LEVEL 112 MEQ/L (98-107); GLOMERULAR FILTRATION RATE > 60.0 (>60); GLUCOSE, FASTING 123 MG/DL (70-100); POTASSIUM SERUM 3.8 MEQ/L (3.5-5.1); SODIUM LEVEL 145 MEQ/L (136-145)
[2021-03-23 02:09] LABS: HCG, SERUM QUALITATIVE NEGATIVE (NEGATIVE)
[2021-03-23] MEDS ORDERED: TAMSULOSIN 0.4 MG CAP PO ONE (02:55)
[2021-03-23] MEDS ORDERED: KETOROLAC TROMETHAMINE 10 MG TAB PO ONE (02:55)
--- NOTE | 2021-03-23 03:38 | REPVR ---
PROCEDURE INFORMATION: Exam: CT Abdomen And Pelvis Without Contrast Exam date and time: 03/23/2021 2:10 AM Age: 26 years old Clinical indication: Abdominal pain; Flank; Left; Additional info: Hematuria, flank pain TECHNIQUE: Imaging protocol: Computed tomography of the abdomen and pelvis without contrast. Radiation optimization: All CT scans at this facility use at least one of these dose optimization techniques: automated exposure control; mA and/or kV adjustment per patient size (includes targeted exams where dose is matched to clinical indication); or iterative reconstruction. COMPARISON: CT ABD PELVIS W/O CONTRAST 06/08/2018 1:56 PM FINDINGS: Liver: The liver attenuation is 15 Hounsfield units and the spleen is 48 Hounsfield units on noncontrast scan. The liver at mid clavicular line measures 18.9 cm. Gallbladder and bile ducts: The gallbladder is contracted with no stones. Pancreas: Normal. No ductal dilation. Spleen: The spleen is unremarkable. Adrenal glands: Normal. No mass. Kidneys and ureters: Small nonobstructing bilateral renal calculi. Minimal left hydronephrosis and hydroureter which extends to a distal left ureteral calculus adjacent to the UVJ measuring 2 mm. Stomach and bowel: Unremarkable. No obstruction. No mucosal thickening. Appendix: A normal appendix is seen. Intraperitoneal space: Unremarkable. No free air. No significant fluid collection. Vasculature: Unremarkable. No abdominal aortic aneurysm. Lymph nodes: Unremarkable. No enlarged lymph nodes. Urinary bladder: Unremarkable as visualized. Reproductive: Retroverted uterus. Bones/joints: Unremarkable. No acute fracture. Soft tissues: Unremarkable. IMPRESSION: 1. Mild hepatomegaly with prominent steatosis. 2. 2 mm distal left ureteral calculus adjacent to the UVJ with obstructive uropathy of the left upper tract. 3. Small nonobstructing bilateral renal calculi. Electronically signed by: Guille Winkler On 03/23/2021 03:37:55 AM
[2021-03-23] MEDS ORDERED: KETO10TAB PO (03:46)
[2021-03-23] MEDS ORDERED: FLOM0.4C39 PO (03:46)
[2021-03-23 03:55] VITALS: BP 121/65
== END 2021-03-23 03:56 | disposition home or self-care (01) ==
LOC: M ED 00:38
DX: N13.2 Hydronephrosis with renal and ureteral calculous obstruction (principal); R16.0 Hepatomegaly, not elsewhere classified; Z88.0 Allergy status to penicillin; Z88.2 Allergy status to sulfonamides; Z79.899 Other long term (current) drug therapy

== ENCOUNTER → 2021-07-02 | Outpatient (CLI) | payer OTHER, MEDICAID ==
[~2021-07-02] MED LIST changes: +FLOM0.4C39 PO; +KETO10TAB PO
[2021-07-02 14:06] LABS: HEMOGLOBIN A1c 5.5 %
[2021-07-02 14:32] LABS: ALT/SGPT 145 U/L (12-78); BILIRUBIN,TOTAL 0.5 MG/DL (0.2-1.0); BLOOD UREA NITROGEN 13 MG/DL (7-18); CALCIUM LEVEL 8.9 MG/DL (8.5-10.1); CARBON DIOXIDE LEVEL 27 MEQ/L (21-32); CHLORIDE LEVEL 108 MEQ/L (98-107); CREATININE FOR GFR 0.67 MG/DL (0.55-1.30); FOLLICLE STIMULATING HORMONE 8.2 mIU/mL; GLOMERULAR FILTRATION RATE > 60.0 (>60); GLUCOSE, FASTING 99 MG/DL (70-100); POTASSIUM SERUM 4.1 MEQ/L (3.5-5.1); PROLACTIN 5.2 NG/ML; SODIUM LEVEL 139 MEQ/L (136-145)
== END ==
LOC: M WUC 09:15
PROVIDERS: ATTEND Nurse Practitioner Family
DX: R63.5 Abnormal weight gain (principal)

== ENCOUNTER 2022-01-01 21:01 | Emergency (ER) | payer MEDICAID, OTHER ==
[~2022-01-01] VITALS: Ht 170.2 cm; Wt 109.0 kg
[2022-01-01 22:21] LABS: RBC, URINE TNTC /hpf (0-3); SQUAMOUS EPITHELIAL CELL URINE SMALL AMOUNT /hpf (SMALL AMT)
[2022-01-01 22:22] LABS: AMORPHOUS SEDIMENT, URINE SMALL AMOUNT (NEGATIVE); BACTERIA, URINE MOD AMOUNT; HYALINE CAST, URINE NONE SEEN /lpf (0-1); MUCUS, URINE SMALL AMOUNT (NEGATIVE)
[2022-01-02 01:43] VITALS: BP 140/85
[2022-01-02 04:22] LABS: BASO % 0.3 % (0.0-1.0); EOS # 0.1 10^3/uL (0.0-0.5); HEMATOCRIT 48.2 % (36.0-47.0); HEMOGLOBIN 16.2 g/dl (12.0-15.5); LYMPH # 3.7 10^3/uL (1.5-5.0); LYMPH % 31.6 % (24.0-44.0); MEAN CORPUSCULAR HEMOGLOBIN 30.1 pg (27.0-33.0); MEAN CORPUSCULAR HGB CONC 33.6 g/dl (32.0-36.5); MEAN CORPUSCULAR VOLUME 89.4 fl (80.0-96.0); MONO # 0.7 10^3/uL (0.0-0.8); MONO % 6.3 % (2.0-8.0); NEUTROPHILS # 7.1 10^3/uL (1.5-8.5); NEUTROPHILS % 60.5 % (36.0-66.0); PLATELET COUNT, AUTOMATED 215 10^3/uL (150-450); RED BLOOD COUNT 5.39 10^6/uL (4.00-5.40); WHITE BLOOD COUNT 11.7 10^3/uL (4.0-10.0)
[2022-01-02 04:46] LABS: HCG, SERUM QUALITATIVE NEGATIVE (NEGATIVE)
[2022-01-02 04:52] LABS: BLOOD UREA NITROGEN 16 MG/DL (7-18); CALCIUM LEVEL 9.6 MG/DL (8.5-10.1); CARBON DIOXIDE LEVEL 27 MEQ/L (21-32); CHLORIDE LEVEL 108 MEQ/L (98-107); CREATININE FOR GFR 0.73 MG/DL (0.55-1.30); GLOMERULAR FILTRATION RATE > 60.0 (>60); GLUCOSE, FASTING 110 MG/DL (70-100); SODIUM LEVEL 140 MEQ/L (136-145)
== END 2022-01-02 04:39 | disposition left against medical advice (07) ==
LOC: M ED 21:01
DX: Z53.21 Procedure and treatment not carried out due to patient leaving prior to being seen by health care provider (principal)

== ENCOUNTER → 2022-02-25 | Outpatient (CLI) | payer OTHER ==
[2022-02-25 20:09] LABS: ALBUMIN 4.1 GM/DL (3.2-5.2); ALT/SGPT 180 U/L (12-78); BILIRUBIN,DIRECT 0.1 MG/DL (0.0-0.2); BILIRUBIN,TOTAL 0.4 MG/DL (0.2-1.0); HEPATITIS B CORE ANTIBODY IGM NEGATIVE (NEGATIVE); HEPATITIS B SURFACE ANTIBODY POSITIVE (POSITIVE); HEPATITIS B SURFACE ANTIGEN NEGATIVE (NEGATIVE); HEPATITIS C VIRUS ABY INDEX < 0.0 INDEX (<0.8); TOTAL PROTEIN 7.1 GM/DL (6.4-8.2)
== END ==
LOC: M WUC 11:03
PROVIDERS: ATTEND Nurse Practitioner Family
DX: R74.01 Elevation of levels of liver transaminase levels (principal)

== ENCOUNTER → 2022-03-14 | Outpatient (CLI) | payer OTHER ==
[2022-03-14 17:32] LABS: INR 0.97; PROTHROMBIN TIME 13.1 SECONDS (12.5-14.5)
[2022-03-14 17:59] LABS: ALBUMIN 4.1 GM/DL (3.2-5.2); BILIRUBIN,DIRECT 0.2 MG/DL (0.0-0.2); BILIRUBIN,TOTAL 0.6 MG/DL (0.2-1.0); TOTAL PROTEIN 7.2 GM/DL (6.4-8.2)
== END ==
LOC: M LAB 16:30
PROVIDERS: ATTEND Internal Medicine Gastroenterology
DX: R74.01 Elevation of levels of liver transaminase levels (principal)

== ENCOUNTER → 2022-06-16 | Outpatient (REF) | payer OTHER, MEDICAID ==
[2022-06-16 23:41] LABS: APPEARANCE, URINE MANUAL CLEAR (CLEAR); COLOR, URINE MANUAL YELLOW (YELLOW)
[2022-06-16 23:42] LABS: BILIRUBIN, URINE MANUAL NEGATIVE (NEGATIVE); BLOOD URINE MANUAL NEGATIVE (NEGATIVE); GLUCOSE, URINE (UA) MANUAL NEGATIVE (NEGATIVE); KETONE, URINE MANUAL NEGATIVE (NEGATIVE); LEUKOCYTE ESTERASE, URINE MAN NEGATIVE (NEGATIVE); NITRITE, URINE MANUAL NEGATIVE (NEGATIVE); PROTEIN, URINE MANUAL NEGATIVE (NEGATIVE); SPECIFIC GRAVITY,URINE MANUAL 1.015 (1.002-1.035); UROBILINOGEN, URINE MANUAL NORMAL (NORMAL)
== END ==
LOC: M LAB REF 23:12
PROVIDERS: ATTEND Physician Assistant Medical
DX: N39.0 Urinary tract infection, site not specified (principal)

== ENCOUNTER → 2022-06-19 | Outpatient (REF) | payer OTHER, MEDICAID | LOC: M LAB REF 16:52 | PROVIDERS: ATTEND Nurse Practitioner Family | DX: M54.50 Low back pain, unspecified (principal) ==

== ENCOUNTER → 2024-06-13 | Outpatient (REF) | payer MEDICAID, OTHER ==
[~2024-06-13] MED LIST changes: +ONDA-282 PO; -ONDA4TAB6 PO
== END ==
LOC: M SFHCDERM 17:06
PROVIDERS: ATTEND Physician Assistant
DX: D22.5 Melanocytic nevi of trunk (principal)